=== PATIENT | male | born 1945 | race Caucasian/White ===

== ENCOUNTER 2025-04-23 12:33 | Emergency (ER) | payer MEDICARE, OTHER, MEDICAID, SELFPAY ==
--- NOTE | ~2025-04-23 | XR_ITS ---
CHEST RADIOGRAPH, PA AND LATERAL CLINICAL HISTORY: cough/sob few days former smoker hx copd, pneumonia . COMPARISON: None available TECHNIQUE: PA and lateral views of the chest. FINDINGS Sternal wires and mediastinal clips are identified, the wires are midline and intact. The left mid lung is partially obscured due to pacemaker/AICD generator. Wires project over the right atrium, coronary sinus and right ventricle. Prosthetic valve is identified within the mitral position. Coils identified within the anterior mediastinum. The remainder of the cardiomediastinal silhouette is otherwise unremarkable. Increased interstitial markings are identified bilaterally, findings suggesting mild pulmonary vascul ar congestion. The remainder of the lungs are clear. IMPRESSION: Mild pulmonary vascular congestion, without focal infiltrate or effusion. Reviewed, dictated and finalized at location A.
--- NOTE | 2025-04-23 12:34 | ED.URI ---
HPI - URI/Sore Throat General Chief Complaint: Upper Respiratory Infection Stated Complaint: pneumonia Time Seen by Provider: 04/23/25 12:34 Source: patient Mode of arrival: ambulatory Limitations: no limitations History of Present Illness HPI Narrative: Jase is a 79 year old male patient presenting to the clinic today with c/o possible pneumonia. He reports he started having cough yesterday that is productive with some yellow phlegm. Has had shortness of breath over the past couple months. Has a history of pulmonary hypertension. States that is why he has shortness of breath however, the shortness of breath has become worse. Denies any chest pain. No fevers, chills, body aches. History of quadruple bypass, 5 heart attacks, 2 open heart surgery, COPD, congestive heart failure, and type 2 diabetes. Former smoker. Related Data Home Medications ?Medication ?Instructions ?Recorded ?Confirmed ?Last Taken ?Type apixaban 5 mg tablet (Eliquis) mg 04/23/25 Unknown History aspirin 81 mg capsule 81 mg PO DAILY 04/23/25 04/23/25 Unknown History atorvastatin 40 mg tablet mg 04/23/25 Unknown History [id number] oil-omega 3-vit E cap PO 04/23/25 Unknown History 50 mg-550 mg-300 mg-30 unit capsule isosorbide mononitrate 30 mg mg PO 04/23/25 Unknown History tablet,extended release 24 hr spironolactone 25 mg tablet mg 04/23/25 Unknown History Allergies Allergy/AdvReac Type Severity Reaction Status Date / Time latex Allergy Mild Itching Verified 04/23/25 12:55 metronidazole (From Flagyl) Allergy Anaphylaxis Verified 04/23/25 12:55 acetaminophen (From Tylenol) AdvReac Mild Nausea Verified 04/23/25 12:55 codeine AdvReac Mild Hallucinati Verified 04/23/25 12:55 ng ibuprofen AdvReac Mild Other Verified 04/23/25 12:55 lisinopril AdvReac Mild Swelling Verified 04/23/25 12:55 morphine AdvReac Hallucinati Verified 04/23/25 12:55 ng Review of Systems Review of Systems: Pertinent positives per HPI. Patient denies any fever, chills, rash, headache, visual changes, dizziness, chest pain, palpitations, nausea, vomiting, diarrhea, constipation, abdominal pain, or any urinary issues. PMFSH Comments At the time of my signature, I reviewed and agree with the nursing past medical, surgical, social, and family history. There is no relevant family history pertinent to the patient complaint. Exam Narrative: General: Well-developed, well nourished, chronically ill-appearing Head: Normocephalic, atraumatic Eyes: Pupils equally round and reactive to light bilaterally, EOM intact, sclera and conjunctive clear, no discharge, lids normal Ears: TMs intact and clear, ear canals clear, no drainage, grossly hearing normal. Nose: Nares patent, clear nasal discharge, no inflammation, no sinus tenderness. Mouth: Oral pharynx without lesions or masses, good dentition, MMM. Neck: Supple, trachea midline, no enlargement of anterior or posterior cervical nodes, no thyroid masses or goiter palpable. Cardio: Regular rate and rhythm, s1 and s2 normal, no murmur appreciated. Resp: Lung sounds tight with expiratory wheezing and rhonchi, no rales or rubs, increased work to breathe, pursed lip breathing-no retractions Extremities: No deformity, 1 +pitting edema, no cyanosis, capillary refill less than 2 seconds, peripheral pulses palpable and strong. Integumentary: [place], warm, and dry, intact without lesion, no rashes. Course Course Emergency Course: Portions of this record may have been created with voice recognition software. Level of Care: Express Care Visit Vital Signs Vital signs: Vital Signs Temperature 36.3 C L 04/23/25 12:53 Pulse Rate 95 04/23/25 12:53 Respiratory Rate 24 H 04/23/25 12:53 Blood Pressure 111/63 04/23/25 12:53 Pulse Oximetry 97 04/23/25 12:53 Oxygen Delivery Room Air 04/23/25 12:53 Temperature 36.3 C L 04/23/25 12:53 Pulse Rate 95 04/23/25 12:53 Respiratory Rate 24 H 04/23/25 12:53 Blood Pressure 111/63 04/23/25 12:53 Pulse Oximetry 97 04/23/25 12:53 Oxygen Delivery Room Air 04/23/25 12:53 Vital signs reviewed MDM - URI/Sore Throat MDM Narrative Medical decision making narrative: At the time of visit patient is resting comfortably on the exam table. Patient appears to be nontoxic. Medications: DuoNeb hand-held neb treatment given in the clinic today-patient reports this improved his symptom-aeration has improved EKG: EKG shows dual paced with heart rate of 80 beats per min. Diagnostics: Chest x-ray here for any sign pneumonia effusions but does show some mild pulmonary congestion. No reported cardiomyopathy Plan: I suspect patient has COPD exacerbation/pulmonary hypertension but cannot fully rule out CHF exacerbation. Patient has productive cough with some yellow phlegm. Has no sign pleural effusion or cardiomyopathy upon x-ray. Patient takes Eliquis daily so PE is less likely differential. Patient has 1+ pitting edema in the bilateral lower extremities. Shared decision making was performed. Explained to the patient that I cannot rule out a congestive heart failure exacerbation in the clinic and he would need to go the ER for further evaluation. Patient reports he is feeling better after the breathing treatment and would like to go home with medications prescribed and if he gets worse he will go to the emergency room. Oxygen saturations 97 on room air. He is afebrile and other vital signs are stable. Supportive measures were discussed with the patient and they voiced understanding discharge instructions and agrees to treatment plan. Return precautions reviewed Differential Diagnosis Differential diagnosis: Likely upper respiratory infection, otitis media, sinusitis, viral infection, bronchitis, influenza, pharyngitis and other (COVID, pneumonia, PE, CHF exacerbation, COPD exacerbation, history of pulmonary hypertension) Imaging Data Radiologist's impression: ITS Impressions Chest X-Ray 04/23/25 13:52 IMPRESSION: Mild pulmonary vascular congestion, without focal infiltrate or effusion. ECG Data EKG #1: Attestation: I personally reviewed and interpreted this ECG as follows: ECG completion date: 04/23/25 ECG completion time: 13:06 Prior ECG tracings: not available for review Interpretation: EKG shows dual paced rhythm with heart rate of 80. MD intervals 191 milliseconds QRS durations 178 milliseconds, QT-QTC is 455/for her 90 milliseconds, P-R-T axis is 257 101 264 Discharge Plan Discharge Clinical Impression: Acute exacerbation of chronic obstructive pulmonary disease, Pulmonary hypertension Patient Disposition: Home Condition: Stable Instructions: Antibiotic Form, COPD (Chronic Obstructive Pulmonary Disease) (ED) Additional Instructions: Hand-held neb DuoNeb treatment given in the clinic today Chest x-ray shows mild pulmonary vascular congestion-no sign of pneumonia or effusion. I suspect you of COPD exacerbation Take prescription medications only as prescribed-prednisone, albuterol inhaler, DuoNeb solution, and azithromycin Increase fluids and stay well hydrated Tylenol/motrin for pain/fever Flonase and OTC antihistamines as directed Vicks vapor rub to open sinuses Sinus rinses for congestion Cepacol spray, cough drops, throat lozenges, warm tea with honey/lemon, gargle salt water to soothe throat BRAT diet for diarrhea Clear liquids x 24 hours then advance as tolerated for nausea/vomiting Go to the ED if you develop a worsening in your condition- high fever not controlled by Tylenol or Motrin, dehydration, weakness, lethargy, shortness of breath, or chest pain. Follow up with your PCP in 3-5 days if symptoms persist. Patient Language: Occitan Prescriptions: New doxycycline monohydrate 100 mg capsule 100 mg PO BID 7 Days Qty: 14 0RF prednisone 20 mg tablet 40 mg PO DAILY 5 Days Qty: 10 0RF albuterol sulfate 90 mcg/actuation HFA aerosol inhaler 2 puff inhalation Q4-6H PRN (Reason: shortness of breath or wheezing) 30 Days Qty: 8.5 0RF ipratropium-albuterol 0.5 mg-3 mg(2.5 mg base)/3 mL solution for nebulization 3 ml inhalation Q6H PRN (Reason: shortness of breath or wheezing) 30 Days Qty: 180 0RF No Action atorvastatin 40 mg tablet isosorbide mononitrate 30 mg tablet extended release 24 hr PO spironolactone 25 mg tablet Eliquis 5 mg tablet co [id number] oil-omega 3-E [id number] [id number]-unit capsule PO aspirin 81 mg capsule 81 mg PO DAILY Follow-up/Referrals: UNKNOWN,DOCTOR [Primary Care Provider] - Time of Disposition: 14:04 Quality NIHSS Nursing Documentation ED NIHSS nursing documentation: reviewed/agree
--- OUTSIDE RECORDS SUMMARY | 2025-04-23 12:49 | XMS_ITS | Encounter Summary ---
Author Organization [facility] Address [address] [place] [address] Phone Care Team Providers Care Route Jumper Name Role Phone Al Multani DO Unavailable Unknown, Pcp Primary Care Provider Unavailabl e Encounter Details Date Type Department Care Team (Late st Contact Info) Description 01/14/2025 Telephone [facility] [address] [facility] [address] [place] [address] Al Multani DO [address] [facility] [address] [place] [address] Social History Smoking Status as of 01/04/2025 Tobacco Use Types Packs/Day Years Used Date Smoking Tobacco: Former Cigarettes 3 40 0 12/18/1958 - 12/18/1998 Smokeless Tobacco: Never Smoking Status as of 02/18/2013 Tobacco Use Types Packs/Day Years Used Date Smoking Tobacco: Former Cigarettes 0 12/18/1958 - 12/18/1998 Smokeless Tobacco: Never Smoking Status as of 07/16/2012 Tobacco Use Types Packs/Day Years Used Date Smoking Tobacco: Former Cigarettes Q uit: 12/18/1998 Smokeless Tobacco: Never Alcohol Use as of 01/04/2025 Alcohol Use Standard Drinks/Week Comments Not Currently 0 (1 standard drink = 0.6 oz pur e alcohol) rarely [id number] Health Literacy Answer Date Recor ded How often do you need to hav e someone help you when you read instructions, pamphlets, or other written material from your doctor or pharmacy? Never 01/05/2025 [facility] Utilities Answer Date Recorded In the past 12 months has th e electric, gas, oil, or water company threatened to shut off services in your home? No 01/05/2025 Humiliation, Afraid, Rape, and Kick questionnair e Answer Date Recorded Within the last year, have y ou been afraid of your partner or ex-partner? No 01/05/2025 Within the last year, have y ou been humiliated or emotionally abused in other ways by your partner or ex-partner? No Within the last year, have y ou been kicked, hit, slapped, or otherwise physically hurt by your partner or ex-partner? No 01/05/2025 Within the last year, have y ou been raped or forced to have any kind of sexual activity by your partner or ex-partner? No 01/05/2025 Social Connection and Isolation Panel [NHANES] A nswer Date Recorded Frequency of Communication with Friends and Fami ly Not on file 01/05/2025 Frequency of Social Gatherings with Friends and Family Not on file 01/05/2025 Attends Adventism Services Not on file 01/05 Active Member of Clubs or Organizations Not on f ile 01/05/2025 Attends Club or Organization Meetings Not on lauren e 01/05/2025 Are you , , di vorced, , never , or living with a partner? 01/05/2025 Overall Financial Resource Strain (CARDIA) Answe r Date Recorded How hard is it for you to pa y for the very basics like food, housing, medical care, and heating? Not very hard 07/23/2023 PHQ-2 Answer Date Recorded Depression Risk (PHQ2 Score) Score 0-2 = Not likely to be at risk for depression, Score 3-6 = At risk for depression 0 02/06/2021 [facility] [place] [facility] - Occupational Stress Questionnaire Answer Date Recorded Do you feel stress - tense, restless, nervous, or anxious, or unable to sleep at night because your mind is troubled all the time - these days? Only a little 07/23/2023 Exercise Vital Sign Answer Date Recorde d On average, how many days pe r week do you engage in moderate to strenuous exercise (like a brisk walk)? 0 days 07/23/2023 On average, how many minutes do you engage in exercise at this level? 0 min 07/23/2023 Hunger Vital Sign Answer Date Recorded Within the past 12 months, y ou worried that your food would run out before you got the money to buy more. Never true 01/06/20 25 Within the past 12 months, t he food you bought just didn't last and you didn't have money to get more. Never true 01/05/2025 PRAPARE - Transportation Answer Date Re corded In the past 12 months, has l ack of transportation kept you from medical appointments or from getting medications? No 12/18 In the past 12 months, has l ack of transportation kept you from meetings, work, or from getting things needed for daily living? No 01/05/2025 Housing Stability Vital Sign Answer Solo e Recorded In the last 12 months, was t here a time when you were not able to pay the mortgage or rent on time? No 07/23/2023 In the last 12 months, how many places have you lived? 1 07/23/2023 In the last 12 months, was t here a time when you did not have a steady place to sleep or slept in a assisted (including now)? No 07/23/2023 Housing Stability Vital Sign Answer Solo e Recorded In the last 12 months, was t here a time when you were not able to pay the mortgage or rent on time? No 01/05/2025 In the past 12 months, how m any times have you moved where you were living? 0 01/05/2025 At any time in the past 12 m [facility], were you homeless or living in a assisted (including now)? No 01/05/2025 Sex and Gender Information Value Date Recorded Sex Assigned at Male 02/06/2021 12:03 PM EDT Legal Sex Male 9:24 PM EST Gender Identity Male 02/06/2021 12:03 PM EDT Sexual Orientation Straight 02/06/2021 12 :03 PM EDT documented as of this encounter Progress Notes * Christine Barrett - 01/14/2025 1:04 PM EDT Scheduling Call:Hospital Discharge/TCM Reason for Call: TCM Appointment Needed Provider Requested: Rangel Tucker Date of Discharge:01/06 Discharged From: [facility] Reason for hospitalization: Shortness of breath, chest pain Office to schedule: Yes Requesting Callback: Yes Callback Number: [phone] Other: Jase Phoenix [id number] documented in this encounter Plan of Treatment Not on file documented as of this encounter Goals Goal Patient Goal Type Associated Problems Recent Progress Patient-Stated? Author Feel better General No Radha Guzman LSW documented as of this encounter Visit Diagnoses Not on filedocumented in this encounter Care Teams Route Jumper Relationship Specialty Start Date End Date Al Multani DO [address] [id number] PCP - Jimenez FRENCH Attributed 06/20/24 Unknown, Pcp, PCP - General Unknown Physician Specialty 01/04/25 documented as of this encounter
--- OUTSIDE RECORDS SUMMARY | 2025-04-23 12:49 | XMS_ITS | Clinical Summary ---
Author Organization [facility] Address [address] [place] [address] Phone Care Team Providers Care Sales Department Supervisor Name Role Phone Al Multani DO Unavailable Unknown, Pcp Primary Care Provider Unavailabl e Allergies Active Allergy Reactions Criticality Noted Date Comments Aspirin-Dipyridamole Other (See Comments) Low 10/04 Dizziness and headache Codeine Other (See Comments) Low 10/03/2011 Altered mental status Metronidazole Swelling High 05/14/2017 Throat and Uvula swelling Gabapentin Other (See Comments) Low 03/30/2013 Lightheaded and drowsy Ibuprofen Other (See Comments) Low 10/03/2011 Low back pain - swollen kidneys Latex Rash 10/03/2011 Lisinopril Swelling High 09/29/2017 Metformin Muscle Pain Medium 05/31/2019 Morphine Other (See Comments) Low 10/03/2011 Altered mental status Acetaminophen Other (See Comments) Low 05/01/2017 Upset stomach Medications multivitamin (THERAGRAN,THERA ) Tab Take 1 Tab by mouth daily. Active insulin glargine (LANTUS) 100 unit/mL injection Inject 50 Units into the skin 2 (two) times daily Active insulin aspart (NOVOLOG) 100 unit/mL injection pen Inject 26 Units into the skin 3 (three) times daily before meals Note:plus sliding scale Active furosemide (LASIX) 40 mg tablet Take 40 mg by mouth 2 (two) times daily Active pantoprazole (PROTONIX) 40 mg tablet Take 40 mg by mouth 2 (two) times daily Active aspirin (ASPIRIN) 81 mg chewable tablet Take 81 mg by mouth daily Active carboxymethylcel lulose sodium (REFRESH TEARS) 0.5 % artificial tears Apply 1 Drop to affected eye(s) 4 (four) times daily Active olopatadine (PATANOL) 0.1 % ophthalmic solution Apply 1 Drop to affected eye(s) 2 (two) times daily Active ferrous sulfate 325 mg (65 mg iron) EC tablet Take 325 mg by mouth 2 (two) times daily Active losartan (COZAAR) 25 mg tablet Take 25 mg by mouth daily Active oxyCODONE (ROXICODONE) 5 mg immediate release tablet Take 5 mg by mouth 3 (three) times daily as needed for Pain Active apixaban (ELIQUIS) 5 mg tablet Take 1 (one) Tablet by mouth every 12 (twelve) hours 60 Tablet 1 02/03/2025 11:54 AM EDT 5 Active atorvastatin (LIPITOR) 40 mg tablet Take 1 (one) Tablet by mouth nightly 30 Tablet 1 02/03/2025 11:54 AM EDT 5 Active empagliflozin (JARDIANCE) 10 mg tab tablet Take 1 (one) Tablet by mouth daily 30 Tablet 1 02/03/2025 11:54 AM EDT 5 Active isosorbide mononitrate (IMDUR) 30 mg CR tablet Take 1 (one) Tablet by mouth daily 30 Tablet 1 02/03/2025 11:54 AM EDT 5 Active spironolactone (ALDACTONE) 25 mg tablet Take 0.5 (half) Tablet by mouth daily 30 Tablet 01/06/2025 3:36 PM EDT 5 Active sotaloL (BETAPACE) 80 mg tablet Take 1 (one) Tablet by mouth every 12 (twelve) hours 60 Tablet 1 5 Active Active Problems Problem Noted Date Diagnosed Date Atrioventricular block, complete 03/02/2025 Chronic cough 03/02/2025 Central retinal vein occlusi on, left eye, with retinal neovascularization 03/02/2025 Degeneration of lumbar intervertebral disc 03/02 Depression, unspecified 03/02/2025 Exposure to potentially hazardous substance 02/17 Hyphema, left eye 03/02/2025 Idiopathic corneal edema, left eye 03/02/2025 Insomnia, unspecified 03/02/2025 Iron deficiency anemia, unspecified 03/02/2025 Major depressive disorder with single episode Late effects of cerebrovascular disease 03/02/20 25 Ocular hypertension, left eye 03/02/2025 Polyp of colon 03/02/2025 Sick sinus syndrome 03/02/2025 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, bilateral 03/02/2025 S/P ablation of atrial fibrillation 03/02/2025 Male erectile disorder 03/02/2025 Atrial fibrillation 03/02/2025 Chronic ischemic heart disease 03/02/2025 Overview (03/02/2025): Jan 14, 2013 Entered By: XIMENA AGUILAR Comment: s/p cabg, stent 2005 , s/p mi Apr 07, 2013 Entered By: XIMENA AGUILAR Comment: lvef 60-65% Atherosclerosis of aorta 01/20/2025 NSTEMI (non-ST elevated myocardial infarction) 0 01/05/2025 Abnormal PFT 05/27/2024 Controlled type 2 diabetes m ellitus without complication, with long-term current use of insulin 05/27/2024 Overview (03/11/2025): Lab Results Component Value Date [id number] 6.3 (H) 01/05/2025 Abdominal aortic aneurysm (AAA) without rupture 11/27/2023 Lung nodule 11/27/2023 Nonrheumatic aortic valve stenosis 11/27/2023 CAD (coronary artery disease) 11/27/2023 Hx of CABG 07/23/2023 Hx of mitral valve replacement 07/23/2023 Diplopia 02/06/2021 Coronary artery disease involving coronary bypas s graft 10/29/2018 Gastroesophageal reflux disease without esophagi tis 10/29/2018 Pulmonary hypertension 10/29/2018 Overview (10/29/2018): 05/05/2018 2D Echocardiogram: There was mild pulmonary hypertension present. Aortic valve stenosis, mild 04/30/2018 Former smoker 04/28/2018 Paroxysmal atrial fibrillation 04/28/2018 Cardiac pacemaker in situ 04/11/2017 Hyperlipidemia 04/11/2017 Osteoarthritis of spine with myelopathy 04/11/20 17 Obesity, Class I, BMI 30-34.9 04/11/2017 Obstructive sleep apnea on CPAP 03/30/2013 Essential hypertension 07/16/2012 Type 2 diabetes mellitus, wi th long-term current use of insulin 07/16/2012 Coronary artery disease invo lving [place] coronary artery with unstable angina pectoris 07/16/2012 Cerebral artery occlusion with cerebral infarcti on 07/16/2012 Carpal tunnel syndrome 06/21/2008 Overview (03/02/2025): May 16, 2017 Entered By: MIGRATION,USER Comment: Added from station 550 as a result of [facility] move. Osteoarthritis cervical spine 06/21/2008 Anemia, unspecified 11/23/2004 History of shingles Resolved Problems Problem Noted Date Diagnosed Date Resolved Date Unstable angina 01/04/2025 03/02/2025 Chest pain 07/23/2023 03/02/2025 Hyperglycemia due to type 2 diabetes mellitus 10/29/19 19 03/02/2025 CHF exacerbation 10/29/2018 03/02/2025 Acute on chronic diastolic ( congestive) heart failure 10/28/2018 03/02/2025 Overview (10/29/2018): 04/29/2018 2D Echocardiogram showed normal left ventricular systolic function with ejection fraction = 60-65%. Abnormal left ventricular diastolic filling is observed, consistent with impaired LV relaxation (grade I). Pneumonia 09/19/2018 10/29/2018 Acute upper GI bleed 08/10/2018 019 Anemia due to blood loss, acute 08/10/2018 10/29/2018 Presence of drug coated sten t in right coronary artery 04/30/2018 10/29/2018 NSTEMI (non-ST elevated myoc ardial infarction) 04/28/2018 10/29/2018 Abdominal hernia 04/28/2018 04/30/2018 Atypical atrial flutter 01/26/201804/19 Atrial flutter 09/29/2017 04/30/2018 Chest pain at rest 08/19/2017 8 Influenza A 08/19/2017 04/30/2018 Febrile illness 04/11/2017 04/30/2018 Hx of cerebral infarction 04/11/2017 Chronic low back pain 04/11/20172018 Hyponatremia 04/11/2017 04/30/2018 Urinary tract infection without hematuria 04/11/2017 04/30/2018 Unstable angina 01/20/2015 04/30/2018 Near syncope 11/14/2013 10/29/2018 Dyspnea on exertion 03/30/2013 03/02/20 25 Daytime hypersomnolence 03/30/201304/19 Chronic obstructive pulmonar y disease with acute exacerbation 07/16/2012 10/29/2018 CHF (congestive heart failure) 07/16/2012 04/30/2018 CVA (cerebral infarction) 07/16/2012 Deviated septum 07/16/2012 10/29/2018 Aneurysm of aorta 07/16/2012 04/30/2018 Encounters Date Type Department Care Team Description 04/19/2025 Patient Outreach [facility] Ava Minor CPhT Patient Outreach (Medication Adherence/) 03/07/2025 Refill [facility] [address] [facility] [place] [phone] Reagan Recio MD from Last 3 Months Immunizations Immunization Administration Dates Next Due Influenza, Trivalent 07/16/2011 Pneumococcal Conjugate 13 07/16/2011 Family History Medical History Relation Name Comments Cancer Maternal grandfather throat Hypertension Maternal grandmother Kidney Disease Natural brother Liver Disease Natural brother Coronary Artery Disease Natural father Diabetes Natural father Hypertension Natural father Coronary Artery Disease Natural mother Dementia Natural mother Diabetes Natural mother Hypertension Natural mother Diabetes Natural sister 1 Diabetes Natural sister 2 Diabetes Natural sister 3 No Known Problems Natural son 1 No Known Problems Natural son 2 No Known Problems Natural son 3 Cancer Paternal grandfather Relation Name Status Comments Maternal grandfather Maternal grandmother Natural brother Natural father Natural mother Natural sister 1 Alive Natural sister 2 Alive Natural sister 3 Alive Natural son 1 Alive Natural son 2 Alive Natural son 3 Alive Paternal grandfather Paternal grandmother Social History Tobacco Use Types Packs/Day Years Used Date Smoking Tobacco: Former Cigarettes 3 40 0 12/18/1958 - 12/18/1998 Smokeless Tobacco: Never Alcohol Use Standard Drinks/Week Comments Not Currently 0 (1 standard drink = 0.6 oz pur e alcohol) rarely B1300 Health Literacy Answer Date Recor ded How often do you need to hav e someone help you when you read instructions, pamphlets, or other written material from your doctor or pharmacy? Never 01/05/2025 [facility] Utilities Answer Date Recorded In the past [...] and Family Not on file 01/05/2025 Attends Jewish Services Not on file 01/05 Active Member [...] = At risk for depression 0 02/06/2021 [facility] [place] of Occupat ional Health - Occupational Stress [...] place to sleep or slept in a penitentiary (including now)? No 07/23/2023 Housing Stability Vital Sign Answer Solo e Recorded In the last 12 months, was t here a time when you were not able to pay the mortgage or rent on time? No 01/05/2025 In the past 12 months, how m any times have you moved where you were living? 0 01/05/2025 At any time in the past 12 m [facility], were you homeless or living in a penitentiary (including now)? No 01/05/2025 Sex and Gender Information Value Date Recorded Sex Assigned at Male 02/06/2021 12:03 PM EDT Legal Sex Male 9:24 PM EST Gender Identity Male 02/06/2021 12:03 PM EDT Sexual Orientation Straight 02/06/2021 12 :03 PM EDT Last Filed Vital Signs Vital Sign Reading Time Taken Comments Blood Pressure 120/60 01/06/2025 12:20 PM EDT Pulse 80 01/06/2025 12:30 PM EDT Temperature 36.6 C (97.9 F) 01/06/2025 12:20 PM EDT Respiratory Rate 22 01/06/2025 12:20 PM EDT Oxygen Saturation 96% 01/06/2025 12:30 PM EDT Inhaled Oxygen Concentration 24% 01/06/2025 3 :00 AM EDT Weight 105.7 kg (233 lb) 01/05/2025 8:00 AM EDT Height 180.3 cm (5' 11) 01/05/2025 8:00 AM EDT Body Mass Index 32.5 01/05/2025 8:00 AM EDT Plan of Treatment Health Maintenance Due Date Last Done Comments BMI followup 1964 Zoster (Shingrix) Vaccinatio n (1 of 2) 1996 Hepatitis C Screening 02/10/2015 Lung Nodule Monitoring 08/06/2015 4, 01/13/2012, 12/04/2010, Additional history exists Diabetic Eye Exam 12/10/2015 Diabetic Foot Exam 12/10/2015 Lab-Urine Microalbumin Screening 12/10/2015 Pneumococcal Vaccination (3 of 3 - PCV20 or PCV21) 07/16/2016 07/16/2011, 08/01/2005 Tdap/Td Vaccination (2 - Td or Tdap) 06/24/2018 06/24/2008 RSV Vaccination (1 - 1-dose 75+ series) 2021 Depression Screening 02/06/2022 02/06/2021 COVID-19 Vaccine (1 - 2023-2 5 season) 2024 Lab-Lipid Management 07/24/2024 07/24/2023, 10/29/2018, 04/29/2018, Additional history exists Medicare Wellness 08/02/2024 Medicare Wellness: Advantage Risk Population 10/20/2024 Influenza Vaccination (#1) 05/20/202507/16, 07/16/2011, 08/01/2005 Lab-Creatinine 07/09/2025 01/06/2025, 12/18, 11/15/2024, Additional history exists Lab-K (Potassium) 07/09/2025 01/06/2025, , 11/15/2024, Additional history exists Lab-Hemoglobin A1c (HgA1c) 01/05/202601/05, 07/23/2023, 02/06/2021, Additional history exists Lab-ALT 01/06/2026 01/06/2025, 12/18, 11/15/2024, Additional history exists Diabetes Statin 02/03/2026 02/03/2025, 01/06/2025 Goals Goal Patient Goal Type Associated Problems Recent Progress Patient-Stated? Author Feel better General No Radha Guzman LSW Medical Devices Implanted Type Area Clinical Lab Assistant Device Identifier Shelf Expiration Date Model / Serial / Lot Tendril Sts Implanted:Qty: 1 on 02/07/2015 by Ajay Hall MD Lead Heart [employer]:CARDIAC RHYTHM MNGEMENT [id number] / [id number] / Fineline 11 Ez Implanted:Qty: 1 on 02/07/2015 by Ajay Hall MD Lead Heart [employer]:CARDIAC RHYTHM MT [id number] / [id number] / Accolade Implanted:Qty: 1 on 02/07/2015 by Ajay Hall MD Pacemaker Heart [employer]:CARDIAC RHYTHM MT [id number] / [id number] / Promus Premier [id number] Implanted:Qty: 1 on 01/20/2015 by Davidson Sloan MD Stent Heart [employer] / / [id number] Description:LC Resolute Jhonny-3.0 X 18 04/30/2018 Implanted:Qty: 1 on 04/30/2018 by Aristides Sadler MD Stent [employer] / / [id number] Description:RC Procedures Procedure Name Priority Date/Time Associated Diagnosis Comments COMPREHENSIVE METABOLIC PANEL Routine 01/06/2025 12:21 PM EDT HEMOGLOBIN A1C Routine 01/05/2025 3:52 AM EDT LIPID PROFILE WITH REFLEX TO LDL, DIRECT Routine 07/24/2023 4:[address] CHEST ABDOMEN AND PELVIS W CONTRAST STAT 08/06/2014 5:21 PM EDT from Last 3 Months or Most Recently Relevant to Health Maintenance Results * (ABNORMAL) Comprehensive Metabolic Panel (01/06/2025 12:21 PM EDT) SODIUM 136 133 - 144 mEq/L 01/06/2025 12:49 PM EDT [facility] POTASSIUM 4.4 3.5 - 5.2 mEq/L 01/06/2025 12:49 PM EDT [facility] CHLORIDE 101 98 - 107 mEq/L 01/06/2025 12:49 PM EDT [facility] GLUCOSE 179(H) 70 - 99 mg/dL 01/06/2025 12:49 PM EDT [facility] CREATININE 1.1 0.7 - 1.3 mg/dL 01/06/2025 12:49 PM EDT [facility] CALCIUM 9.5 8.6 - 10.3 mg/dL 01/06/2025 12:49 PM EDT [facility] PROTEIN 7.3 6.4 - 8.9 g/dL 01/06/2025 12:49 PM EDT [facility] ALBUMIN 4.3 3.5 - 5.7 g/dL 01/06/2025 12:49 PM EDT [facility] Total Bilirubin 1.1(H) 0.3 - 1.0 mg/dL 01/06/2025 12:49 PM EDT [facility] ALK PHOS 96 34 - 104 U/L 01/06/2025 12:49 PM EDT [facility] AST (SGOT) 16 13 - 39 U/L 01/06/2025 12:49 PM EDT [facility] CARBON DIOXIDE 27.0 21.0 - 31.0 mEq/L 01/06/2025 12:49 PM EDT [facility] ALT (SGPT) 16 7 - 52 U/L 01/06/2025 12:49 PM EDT [facility] ANION GAP 8.0 6.0 - 15.0 mEq/L 01/06/2025 12:49 PM EDT [facility] BUN 18 7 - 25 mg/dL 01/06/2025 12:49 PM EDT [facility] EGFR >60 >=60 mL/min/1.7 3m2 01/06/2025 12:49 PM EDT [facility] BKR-Blood Venipuncture / Unknown 01/06/2025 12:21 PM EDT 01/06/2025 12:26 PM EDT Narrative [facility] - 01/06/2025 12:49 PM EDT This estimate should be used for screening purposes only. A creatinine clearance should be obtained for use adjusting medication dosages or when choosing potentially nephrotoxic medications. Reported eGFR is being calculated using the CKD-EPI 2020, using only creatinine equation that does not use a race coefficient, and results are in mL/min/1.73m2. Reagan Recio MD LAB BLOOD ORDERABLES Final Re sult [facility] [address] [phone] * (ABNORMAL) HEMOGLOBIN A1C (01/05/2025 3:52 AM EDT) [facility] Signature %A1C 6.3(H) <5.7 % 01/05/2025 4:06 PM EDT [facility] Comment: Reference Range for the diagnosis of diabetes in non patients: >=6.5% diabetes is present 5.7% - 6.4% at risk for diabetes EST. AVG. GLUCOSE 134 mg/dL 01/05/2025 4:06 PM EDT [facility] BKR-Blood Venipuncture / Unknown 01/05/2025 3:52 AM EDT 01/05/2025 4:14 AM EDT Rock Kiko Tineo MD LAB BLOOD ORDERABLES Final Re sult Performing Organization Address [facility]/ZIP Co de Phone Number [facility] [address] [phone] * (ABNORMAL) Lipid Profile with Reflex to LDL, Direct (07/24/2023 4:28 AM EDT) CHOLESTEROL 102(L) <200 mg/dL 07/24/2023 6:18 PM EDT [facility] TRIGLYCERIDES 118 <150 mg/dL 07/24/2023 6:18 PM EDT [facility] HDL CHOLESTEROL 36(L) >40 mg/dL 3 6:18 PM EDT [facility] LDL, CALCULATED 42 0 - 129 mg/dL 07/24/2023 6:18 PM EDT [facility] NON HDL CHOLESTEROL 66 <130 mg/dL 07/24/2023 6:18 PM EDT [facility] CHOL./HDL RATIO 2.8 <=5 3 6:18 PM EDT [facility] VLDL CALCULATED 24 5 - 30 mg/dL 07/24/2023 6:18 PM EDT [facility] Comment: ADDITIONAL INFORMATION: For clinical assessment and management of hypercholesterolemia guidelines please visit the website below: http://www.nhlbi.nih.gov/files/docs/guidelines/atglance.pdf [facility] VENOUS BLOOD SPECIMEN / Unknown IV / Unknown 07/24/2023 4:28 AM EDT 07/24/2023 4:33 AM EDT Parth Fuentes MD LAB BLOOD ORDERABLES Final Resul t Performing Organization Address [facility]/ZIP Co de Phone Number [facility] [address] [phone] * CT chest abdomen and pelvis w contrast (08/06/2014 5:21 PM EDT) Anatomical Region Laterality Modality Abdomen, Chest, Pelvis, Hip N/A Comp uted Tomography Impressions 08/08/2014 10:07 AM EDT 1. No aortic aneurysm or dissection 2. Stable right upper and right lower lobe lesions 3. Nonspecific 2 cm lesion within the pancreatic head, possibly a cystic or mucinous neoplasm. A followup MRI could be obtained for additional information. 4. Severely distended urinary bladder. Thank you for allowing us to participate in the care of your patient. Dictated and Authenticated by: Brandon Arrignton MD 08/06/2014 6:35 PM Eastern Time ([place] & Miguel A) Narrative 08/08/2014 10:07 AM EDT EXAM: CT Chest With Intravenous Contrast CT Abdomen and Pelvis With Intravenous Contrast CLINICAL HISTORY: 69 years old, male; HX Back pain, said to have thoracic aneurysm, concern for AAA. TECHNIQUE: Axial computed tomography images of the chest, abdomen and pelvis with intravenous contrast. Coronal and sagittal reformatted images were created and reviewed. CONTRAST: 100 mL of ISOVUE 370 administered intravenously. COMPARISON: CT ANGIO CHEST 02/19/[address] chest from 12/04/10 FINDINGS: Chest: The patient is status-post sternotomy and coronary artery bypass grafting. No thoracic aortic aneurysm or dissection is seen. There is no central large peripheral pulmonary embolism. The heart is mildly enlarged. Coronary artery calcifications are noted. Several small nonspecific mediastinal lymph nodes are noted. There are no pleural or pericardial effusions. A lobulated 3.3 cm lesion in the medial right lower lobe is unchanged. Faint central calcification or enhancement is noted. A 13 mm right upper lobe nodule is also stable since 2010. There are no acute or suspicious osseous abnormalities. Abdomen: Atherosclerotic calcifications are noted within the aorta and its branches. No abdominal aortic aneurysm or dissection is seen. The liver is unremarkable. The gallbladder is surgically absent. The spleen is within normal limits. There is a nonspecific 2 cm low-density lesion in the pancreatic head. No pancreatic or biliary duct dilation is seen. The adrenal glands and kidneys are unremarkable. There are no abnormally dilated or thickened loops of large or small bowel. There is no free fluid or free air. Several small nonspecific mesenteric and retroperitoneal lymph nodes are noted. There are no acute or suspicious osseous abnormalities. A small fat-containing umbilical hernia is present. Pelvis: A normal appendix is seen within the right lower quadrant. The urinary bladder is significantly dilated and distended. There is no mass or inflammatory process. Limited evaluation of the rectum is unremarkable. No free fluid is present. Postoperative changes are seen involving the lower lumbar spine. Procedure Note Dariel Alexis MD - 08/08/2014 EXAM: CT Chest With Intravenous Contrast CT Abdomen and Pelvis With Intravenous Contrast CLINICAL HISTORY: 69 years old, male; HX Back pain, said to have thoracic aneurysm, concernfor AAA. TECHNIQUE: Axial computed tomography images of the chest, abdomen and pelvis withintravenous contrast. Coronal and sagittal reformatted images were created and reviewed. CONTRAST: 100 mL of ISOVUE 370 administered intravenously. COMPARISON: CT ANGIO CHEST 02/19/[address] chest from 12/04/10 FINDINGS: Chest: The patient is status-post sternotomy and coronary artery bypassgrafting. No thoracic aortic aneurysm or dissection is seen. There is no central large peripheral pulmonary embolism. The heart is mildly enlarged. Coronary artery calcifications are noted. Several small nonspecific mediastinal lymph nodes are noted. There are no pleural or pericardial effusions. A lobulated 3.3 cm lesion in the medial right lower lobe is unchanged. Faint central calcification or enhancement is noted. A 13 mm right upper lobe nodule is also stable since 2010. There are no acute or suspicious osseous abnormalities. Abdomen: Atherosclerotic calcifications are noted within the aorta and itsbranches. No abdominal aortic aneurysm or dissection is seen. The liver is unremarkable. The gallbladder is surgically absent. The spleen is within normal limits. There is a nonspecific 2 cm low-density lesion in the pancreatic head. No pancreatic or biliary duct dilation is seen. The adrenal glands and kidneys are unremarkable. There are no abnormally dilated or thickened loops of large or smallbowel. There is no free fluid or free air. Several small nonspecific mesenteric and retroperitoneal lymph nodes arenoted. There are no acute or suspicious osseous abnormalities. A small fat-containing umbilical hernia is present. Pelvis: A normal appendix is seen within the right lower quadrant. The urinary bladder is significantly dilated and distended. There is no mass or inflammatory process. Limited evaluation of the rectum is unremarkable. No free fluid is present. Postoperative changes are seen involving the lower lumbar spine. IMPRESSION: 1. No aortic aneurysm or dissection 2. Stable right upper and right lower lobe lesions 3. Nonspecific 2 cm lesion within the pancreatic head, possibly a cysticor mucinous neoplasm. A followup MRI could be obtained for additional information. 4. Severely distended urinary bladder. Thank you for allowing us to participate in the care of your patient. Dictated and Authenticated by: Brandon Arrington MD 08/06/2014 6:35 PM Eastern Time ([place] & Miguel A) us Cody Shabazz II, MD IMG CT ORDERABLES Final R esult from Last 3 Months or Most Recently Relevant to Health Maintenance Insurance [facility] [employer] REPLACEMENT Advance Directives * Full Code (Latest Code Status on File) Date Activated Date Inactivated Comments 01/04/2025 10:12 PM 01/06/2025 6:53 PM * Full Code Date Activated Date Inactivated Comments 07/23/2023 1:30 PM 07/24/2023 6:07 PM A code statu s order for Full Code means all appropriate CPR measures as defined in Code Status policy will be initiated in the event of cardiac and/or pulmonary arrest. * Full Code Date Activated Date Inactivated Comments 10/29/2018 12:24 AM 10/30/2018 5:53 PM A code stat us order for Full Code means all appropriate CPR measures as defined in Code Status policy will be initiated in the event of cardiac and/or pulmonary arrest. * Full Code Date Activated Date Inactivated Comments 09/19/2018 9:24 AM 09/20/2018 2:00 PM A code statu s order for Full Code means all appropriate CPR measures as defined in Code Status policy will be initiated in the event of cardiac and/or pulmonary arrest. * Full Code Date Activated Date Inactivated Comments 04/28/2018 4:59 PM 05/01/2018 1:05 PM A code statu s order for Full Code means all appropriate CPR measures as defined in Code Status policy will be initiated in the event of cardiac and/or pulmonary arrest. Care Teams Sales Department Supervisor Relationship Specialty Start Date End Date Al Multani DO [address] [place] [address] [id number] PCP - Jimenez FRENCH Attributed 06/20/24 Unknown, PcpMD PCP - General Unknown Physician Specialty 01/04/25
--- OUTSIDE RECORDS SUMMARY | 2025-04-23 12:49 | XMS_ITS | Encounter Summary ---
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 Name Role Phone Ephraim Carpenter DO Primary Care Provider Al Multani DO Unavailable Unknown, Pcp Primary Care Provider Unavailabl e Julianna Rogers RN Unavailable Unav ailable Encounter Details Date Type Department Care Team (Late st Contact Info) Description 02/07/[address] (inside the [facility]) [place] [address] Isha Santacruz, RN Social History Smoking Status as of 02/06/2021 Tobacco Use Types Packs/Day Years Used Date [...] Smokeless Tobacco: Never Alcohol Use as of 02/06/2021 Alcohol Use Standard Drinks/Week Comments Yes 0 (1 standard drink = 0.6 oz pur e alcohol) rarely PHQ-2 Answer Date Recorded Depression Risk (PHQ2 Score) Score 0-2 = Not likely to be at risk for depression, Score 3-6 = At risk for depression 0 02/06/2021 Sex and Gender Information Value Date Recorded Sex Assigned at Male 02/06/2021 12:03 PM EDT Legal Sex Male 9:24 PM EST Gender Identity Male 02/06/2021 12:03 PM EDT Sexual Orientation Straight 02/06/2021 12 :03 PM EDT COVID-19 Exposure Response Date Recorded In the last month, have you been in contact with someone who was confirmed or suspected to have Coronavirus / COVID-19? No / Unsure 02/06/2021 12:02 PM EDT documented as of this encounter Plan of Treatment Not on file documented as of this encounter Visit Diagnoses Not on filedocumented in this encounter Additional Health Concerns Infection Onset Date Last Indicated Resolved Time COVID-19 Rule-Out 07/12/2021 07/12/2021 07/13/2021 12:02 AM EDT COVID-19 07/12/2021 07/12/2021 08/01/2021 8:30 PM EDT Influenza Rule-Out 11/15/2024 11/15/2024 11:11 AM EST COVID-19 Rule-Out 11/15/2024 11/15/2024 11/15/2024 11:11 AM EST COVID-19 11/15/2024 11/15/2024 12/05/2024 8:31 PM EST documented as of this encounter Care Teams Military Aircraft Designer Relationship Specialty Start Date End Date Ephraim Carpenter DO [address] [place] [address] PCP - General Family Medicine 02/06/21 01/03/25 Al Multani DO [address] [address] PCP - Jimenez FRENCH Attributed 06/20/24 Unknown, Pcp, PCP - General Unknown Physician Specialty 01/04/25 Julianna Rogers, senior electrical design engineer [employer] 01/06/25 01/09/25 documented as of this encounter
--- OUTSIDE RECORDS SUMMARY | 2025-04-23 12:50 | XMS_ITS | Continuity of Care Document ---
Author Organization [facility] Address [address] [place] [address] Phone Care Team Providers Care Feed Grinder Name Role Phone Ricardo Ridley MD Unavailable Unavailable Allergies, Adverse Reactions, Alerts Substance Reaction Status Criticality ibuprofen Active No Information latex Active No Information morphine Active No Information codeine Active No Information Medications Medication Instructions Dosage Effective Dates (start - stop) Status Comments ciprofloxacin 0.3 % Eye Drops instill 1 drop into affected eye(s) every 4 hours while awake - Active Zaditor 0.025 % Eye Drops instill 1 drop by ophthalmic route 2 times every day into affected eye(s) 1.00 drop - Active Procedures Procedure Date OV NEW DETAILED Advance Directives Directive Yes / No Effective Date File Name Resuscitation Not Answered N/A N/A Life Support Not Answered N/A N/A Intubation Not Answered N/A N/A Antibiotics Not Answered N/A N/A IV Fluid Support Not Answered N/A N/A Tube Feed Not Answered N/A N/A Other Directive N/A N/A WARNING:The information contained in this section is historical and is provided for information only and does not constitute a legal document or any assurance that the information is still accurate. Please verify the information with the stratton of the legal document before using it for clinical purposes. Encounters Encounter Description Practice Location Reason(s) For Visit Diagnoses Date Provider Providers Copied on Encounter OV NEW DETAILED [facility], [address], [place], [place], [id number], [place] tel:[phone] [facility], [facility] Family Practice itchy right eye (chief complaint) eye problem (chief complaint) HYPERTENSION UNSPECAllergic Conjuctivitis Apr- 8-201 2 Khai Ricardo. [address], [id number], [place], [place], [id number], [place]. [phone] Referring Provider: Ricardo Darenalexi , [address] [id number] [address], [place], [address] . tel:[phone] Family History Family Member Type Diagnosis Age At Onset Problem (finding) No family history of Ca ncer Problem (finding) Family history of strok e Problem (finding) Family history of hyper tension Problem (finding) Family history of Diabe gildardo mellitus Payers Payer name Insurance type Covered libertarian ID Authoriza tion(s) [employer] [id number] [facility] Care Options [id number] Social History Type Description Quantity Date Captured Comments Alcohol Use Details No Caffeine Use Details coffee and soda 2 Tobacco Use Status No Information Smoking Status Former smoker Smoking Tobacco Use Details Cigarette: No Details Available Cigarette: No Details Available Sex Male Vital Signs Date / Time: Height Weight BMI Pulse Rate Blood Pressure Temperature Respiratory Rate Body Surface Area Head Circumference Head Circ. Percentile Wt./[place]. Percentile BMI percentile Pulse Ox Inhaled Ox 9:48 AM 72.00 in 214.00 lbs 29.0 2 kg/m eter (2) 99 /min 155/71 mm[Hg] 97.80 F 18 /min Chief Complaint And Reason For Visit From encounter dated '02/05/2012 09:30'. itchy right eye (chief complaint) eye problem (chief complaint) Reason For Referral Reason For Referral No Information History Of Present Illness Encounter Date Complaint History Of Prese nt Illness No Information Functional Status Date Functional Assessmen t No Information Instructions Date Instruction Additional Infor mation Warm compress to eye(s) for comf ort will also treat for infection Follow up visit Frequent hand washing Use of eye drops/oitment explain ed Assessments Type Assessment Date No Information Patient Care Teams Name Effective Dates (start - stop) Status Members No Information
[2025-04-23 12:53] VITALS: BP 111/63; PULSE 95; RESP 24; TEMP 36.3; O2SAT 97
--- NOTE | 2025-04-23 13:00 | ECG_ITS ---
Test Date: 2025-04-23 13:06:37 Measurements Intervals Harmony Rate: 80 P: 257 SD: 191 QRS: 101 QRSD: 178 T: 264 QT: 455 QTc: 525 Interpretive Statements ELECTRONIC ATRIAL PACEMAKER ELECTRONIC VENTRICULAR PACEMAKER ABNORMAL RHYTHM ECG No previous ECG available for comparison Electronically Signed On 04-25-2025 22:35:26 CDT by Devi Bae M.D.
[2025-04-23] MEDS: IPRATROPIUM BR 0.02% INH SOLN 0.5 MG/2.5 ML VIAL INHALATION (13:19)
[2025-04-23] MEDS: ALBUTEROL SULFATE NEB 2.5 MG/3 ML INH INHALATION (13:19)
== END 2025-04-23 14:10 | disposition home or self-care (01) ==
PROVIDERS: Emergency Provider Nurse Practitioner Family
DX: J44.1 Chronic obstructive pulmonary disease with (acute) exacerbation (principal); I27.20 Pulmonary hypertension, unspecified; I11.0 Hypertensive heart disease with heart failure; I50.9 Heart failure, unspecified; E78.00 Pure hypercholesterolemia, unspecified; I25.2 Old myocardial infarction; G47.33 Obstructive sleep apnea (adult) (pediatric); E11.9 Type 2 diabetes mellitus without complications; Z87.891 Personal history of nicotine dependence; Z95.2 Presence of prosthetic heart valve; Z95.0 Presence of cardiac pacemaker
CPT/HCPCS: 71046; 93005; 94640; 99213; G0463